=== PATIENT | male | born 1945 | race Caucasian/White ===

== ENCOUNTER 2020-07-17 13:26 | Inpatient (IN) ==
--- NOTE | 2020-07-17 13:56 | Emergency Department Note ---
Weakness HPI General Chief complaint: Weakness Stated complaint: Weakness, Confusion, SOB Time Seen by Provider: 07/17/20 13:37 Source: patient, family and RN notes reviewed Mode of arrival: ambulatory Limitations: no limitations History of Present Illness HPI Narrative: Narrative: This patient has had generalized weakness and confusion for the last couple of days and is also noted hallucination. He has been tested for Covid twice recently and they were negative. He has history of heart failure and COPD. He does use oxygen at home and a nebulizer machine. Has been coughing up chunks of bluish phlegm. Complaint: generalized weakness Onset (ago): day(s) Duration: constant Location: generalized Severity: similar to previous episodes Improves with: none Worsens with: none Associated symptoms: Reports confusion and shortness of breath Related Data Home Medications Medication Instructions Recorded Confirmed duloxetine 60 mg PO DAILY 04/19/20 07/17/20 oxycodone-acetaminophen [Percocet] 1 tab PO Q4H PRN 07/17/20 07/17/20 prazosin 1 mg PO QPM 07/17/20 07/17/20 Previous Rx's Medication Instructions Recorded tamsulosin 0.4 mg capsule 0.4 mg PO QDAY #30 cap 08/10/19 clopidogrel 75 mg tablet 75 mg PO QHS #30 tab 12/27/19 levothyroxine 200 mcg tablet 200 mcg PO QAM #30 tab 04/25/20 Oxygen #1 ea 05/05/20 metoprolol succinate 50 mg 50 mg PO QDAY #30 tab 05/08/20 tablet,extended release 24 hr gabapentin 300 mg capsule 300 mg PO Q8H #360 cap 06/19/20 furosemide 40 mg tablet See Rx Instructions .ROUTE BID 07/14/20 #120 tab potassium chloride 10 mEq 30 meq PO QDAY #120 cap 07/14/20 capsule,extended release Allergies Allergy/AdvReac Type Severity Reaction Status Date / Time ciprofloxacin AdvReac Severe dizzyness, Verified 07/17/20 13:31 confusion Sulfa (Sulfonamide AdvReac Intermediate Rash Verified 07/17/20 13:31 Antibiotics) Review of Systems ROS ROS Narrative: Narrative: All systems ED: reviewed and negative except as stated. [facility] Narrative Patient History Narrative: Narrative: Medical/Surgical/Family History All Active Problems (Updated 07/17/20 @ 16:31 by Dl Briggs MD) Pneumonia (Acute) Night terrors, adult (Acute) SOB (shortness of breath) (Acute) Hypokalemia (Acute) Alcoholic cirrhosis of liver (Acute) Periumbilical pain (Acute) Fatigue (Acute) Pleural effusion (Acute) UTI (urinary tract infection) (Acute) Avascular necrosis of bone of left hip (Acute) Abdominal pain (Acute) Medicare annual wellness visit, subsequent (Acute) Pressure ulcer (Chronic) Congestive heart failure (Chronic) Peripheral neuropathy (Chronic) BPH (benign prostatic hyperplasia) (Chronic) Peripheral arterial disease (Chronic) Hypertension, essential (Chronic) Hyperlipidemia (Chronic) Dependence on nocturnal oxygen therapy (Chronic) COPD (chronic obstructive pulmonary disease) (Chronic) Chronic anticoagulation (Chronic) Chronic narcotic use (Chronic) Obesity (BMI 30-39.9) (Chronic) Hypothyroidism, acquired (Chronic) Neuropathic foot ulcer (Chronic) Spinal stenosis (Chronic) Thrombocytopenia (Chronic) Chronic alcohol use (Chronic) Anemia, macrocytic (Chronic) Hyponatremia (Chronic) Hyperkalemia (Chronic) Medical History (Updated 07/17/20 @ 16:31 by Dl Briggs MD) Anemia, macrocytic (Chronic) BPH (benign prostatic hyperplasia) (Chronic) Chronic alcohol use (Chronic) Chronic anticoagulation (Chronic) Chronic narcotic use (Chronic) Congestive heart failure (Chronic) COPD (chronic obstructive pulmonary disease) (Chronic) Dependence on nocturnal oxygen therapy (Chronic) Hyperkalemia (Chronic) Hyperlipidemia (Chronic) Hypertension, essential (Chronic) Hyponatremia (Chronic) Hypothyroidism, acquired (Chronic) Neuropathic foot ulcer (Chronic) Obesity (BMI 30-39.9) (Chronic) Peripheral arterial disease (Chronic) Peripheral neuropathy (Chronic) Pressure ulcer (Chronic) Rt heel Spinal stenosis (Chronic) Thrombocytopenia (Chronic) Surgical History History of appendectomy (Chronic ~2007) History of atherectomy (Chronic ~10/29/19) Dr. Parth Wagner History of back surgery (Chronic ~2003) L-S W Fusion C-S W Fusion History of colonoscopy (Chronic) History of hip replacement, total (Chronic ~2011) Status post arterial stent (Chronic) bilateral lower extremities; Dr. Moore, [facility] Family History Sister Myocardial infarction Diabetes mellitus Brother Diabetes mellitus Brother Diabetes mellitus Father Leukemia Social History Smoking Status: Current some day smoker Alcohol Intake Frequency: 0-2 drinks per day Substance Use: does not use Exam Narrative Narrative: Narrative: General Limitations: no limitations Head Head: Present atraumatic, normocephalic and normal inspection Eye Eye: Present normal appearance and EOMI; Absent scleral icterus and conjunctival injection ENT ENT: Present normal exam and mucous membranes dry Neck Neck: Present normal inspection and full ROM Chest Chest: Present normal inspection and symmetric chest wall rise Respiratory Respiratory: Present decreased breath sounds Cardiovascular Cardiovascular: Present regular rate, normal rhythm and normal heart sounds Adbominal Abdominal: Present soft; Absent distention and tenderness Extremities Extremities: Present normal inspection and full ROM; Absent pedal edema and pretibial edema Neurological Neurological: Present alert Psychiatric Psychiatric: Present normal affect Skin Skin: Present warm (WNL) and dry; Absent diaphoresis Course Vital Signs Vital signs: Vital Signs Temperature 96.8 F L 07/17/20 13:28 Pulse Rate 83 07/17/20 13:28 Respiratory Rate 26 H 07/17/20 13:28 Blood Pressure 116/61 07/17/20 13:28 Pulse Oximetry (%) 97 07/17/20 13:28 Temperature 96.8 F L 07/17/20 13:28 Pulse Rate 53 L 07/17/20 13:34 Respiratory Rate 24 H 07/17/20 13:34 Blood Pressure 108/67 07/17/20 13:34 Pulse Oximetry (%) 98 07/17/20 13:34 [facility] MDM Narrative Medical decision making narrative: Narrative: Patient was cultured and treated with Rocephin and Zithromax and will be admitted to the hospital by Dr. Yeh. Lab Data Lab results reviewed: Yes I reviewed the patient's lab results. Lab results narrative: Lab work was not real remarkable Radiology Data Radiology results reviewed: Yes I reviewed the patient's radiology results. Radiology results narrative: X-ray shows bilateral pneumonia. Discharge Plan Patient/Caregiver Discharge Instructions Pt seen by [facility] P[facility]EMENTER/PA only: No Clinical Impression: Pneumonia Patient Disposition: Xfer As Inpt ([facility]) Follow up with: Christiano Flanagan MD [Primary Care Provider] - Prescriptions: No Action (DME) Oxygen Qty: 1 RF: 0 furosemide 40 mg tablet See Rx Instructions .ROUTE BID Qty: 120 RF: 1 potassium chloride 10 mEq capsule, extended release 30 meq PO QDAY Qty: 120 RF: 12 tamsulosin 0.4 mg capsule 0.4 mg PO QDAY Qty: 30 RF: 12 clopidogrel 75 mg tablet 75 mg PO QHS Qty: 30 RF: 11 levothyroxine [Levoxyl] 200 mcg tablet 200 mcg PO QAM Qty: 30 RF: 3 metoprolol succinate 50 mg tablet extended release 24 hr 50 mg PO QDAY Qty: 30 RF: 3 gabapentin 300 mg capsule 300 mg PO Q8H Qty: 360 RF: 0 duloxetine 60 mg capsule,delayed release(DR/EC) 60 mg PO DAILY RF: 0 prazosin 1 mg Capsule 1 mg PO QPM RF: 0 oxycodone-acetaminophen [Percocet] 10-325 mg Tablet 1 tab PO Q4H PRN (Reason: Back Pain) RF: 0
--- NOTE | 2020-07-17 14:27 | Cat Scan Report ---
History: Increased confusion and weakness TECHNIQUE: The brain was imaged without contrast at 2.5 mm intervals. The radiation exposure was limited using dose reduction technology. FINDINGS: Mild generalized cerebral atrophy is present. There is no evidence of an infarct, hemorrhage or mass effect. The ventricles and cisterns are normal allowing for atrophy. There is no abnormal extra-axial fluid collection. Bone windows show no skull lesion. There is opacification of a posterior ethmoid air on the left side. No abnormality is seen within the orbits. There are calcified plaques in the cavernous portions of both internal carotids. IMPRESSION: Normal age-related degenerative changes low-grade left-sided ethmoid sinusitis Dr. Briggs was called with results Interpreted and Authenticated by: Raymond Tang 07/17/20
[2020-07-17 14:29] LABS: Basophils # (Auto) 0.06 K/mcL (0.00-0.20); Basophils % (Auto) 0.8 % (0.0-2.0); Eosinophils # (Auto) 0.23 K/mcL (0.00-0.70); Eosinophils % (Auto) 3.2 % (0.0-7.0); Hematocrit 38.6 % (41.0-55.0); Hemoglobin 12.2 g/dL (13.5-16.5); Lymphocytes # (Auto) 1.62 K/mcL (1.50-4.80); Lymphocytes % (Auto) 22.5 % (15.0-49.0); Mean Corpuscular HGB Conc 31.6 g/dL (31.0-36.0); Mean Platelet Volume 11.8 fL (7.4-10.4); Monocytes % (Auto) 16.7 % (1.0-12.0); Neutrophils % (Auto) 56.8 % (38.0-78.0); Platelet Count 166 K/mcL (140-440); RBC 3.98 M/mcL (4.50-5.90); Red Cell Distribution Width 14.7 % (11.5-14.5); WBC 7.2 K/mcL (4.5-11.0)
--- NOTE | 2020-07-17 14:30 | XRay Report ---
HISTORY: Short of breath FINDINGS: Large consolidating alveolar infiltrates are present in the lower half of both lungs. There is mild involvement in the left upper lobe. There is sparing of the right upper lobe. Superimposed upon this are small to moderate-sized bilateral pleural effusions. Infiltrates have become worse. The pleural effusions have remained relatively stable since 05/30/20. The heart is not enlarged. Extensive postsurgical changes are present following extensive spinal fusion. IMPRESSION: Worsening pneumonia in both lungs with stable superimposed pleural effusions Interpreted and Authenticated by: Raymond Tang 07/17/20
[2020-07-17 15:01] LABS: ALT/SGPT < 5 U/L (<40); AST/SGOT 14 U/L (<40); Albumin 3.9 gm/dL (3.2-5.2); Albumin/Globulin Ratio 1.2 (1.0-2.3); Alkaline Phosphatase 233 U/L (39-117); Bilirubin,Total 0.7 mg/dL (0.1-1.0); Blood Urea Nitrogen 13 mg/dL (8-23); Calcium 9.4 mg/dL (8.6-10.4); Carbon Dioxide 36 mmol/L (22-30); Chloride 94 mmol/L (96-108); Globulin 3.2 gm/dL (2.2-3.7); Glomerular Filtration Rate 59; Glucose 82 mg/dL (70-105)
[2020-07-17] MEDS ORDERED: cefTRIAXone 1 GM VIAL IV ONE (15:45)
[2020-07-17] MEDS ORDERED: AZITHROMYCIN 500 MG in DEXTROSE 5% IN WATER 250 ML IV ONE (15:45)
[2020-07-17 16:00] LABS: Appearance,Urine CLEAR (Clear); Bilirubin,Urine Negative (Negative); Color,Urine YELLOW; Culture Indicated,Urine No; Glucose,Urine (UA) Negative (Negative); Ketones,Urine Negative (Negative); Leukocyte Esterase,Urine Negative /ug (Negative); Mucus,Urine FEW /hpf; Nitrate,Urine Negative (Negative); Protein,Urine Negative (Negative); Specific Gravity,Urine 1.013 (1.000-1.035); Urine Blood Negative (Negative); Urine Hyaline Cast 19 /lph (0-2); Urine RBC 1 /hpf (0-1); Urine Squamous Epithelial Cell 2 /hpf (0-4); Urine Transitional Epi Cells < 1 /hpf (0-2); Urine WBC 2 /hpf (0-4)
[2020-07-17] MEDS ORDERED: ACETAMINOPHEN 650 MG/65 ML BOTTLE IV PRN ×2 (16:33→18:29)
[2020-07-17] MEDS ORDERED: POLYETHYLENE GLYCOL 3350 17 GM PACKET PO PRN ×2 (16:33→18:29)
[2020-07-17] MEDS ORDERED: ACETAMINOPHEN 325 MG TABLET PO PRN ×2 (16:33→18:29)
[2020-07-17] MEDS ORDERED: MAGNESIUM SULFATE 2 GM/50 ML BAG IV PRN ×2 (16:33→18:29)
[2020-07-17] MEDS ORDERED: ONDANSETRON 4 MG/2 ML VIAL IV PRN ×2 (16:33→18:29)
[2020-07-17] MEDS ORDERED: POTASSIUM CHLORIDE 40 MEQ in DEXTROSE 5% IN WATER 500 ML IV PRN ×2 (16:33→18:29)
[2020-07-17] MEDS ORDERED: ONDANSETRON 4 MG ODT TABLET SL PRN ×2 (16:33→18:29)
[2020-07-17] MEDS ORDERED: MELATONIN 3 MG TABLET PO PRN ×2 (16:33→18:29)
[2020-07-17] MEDS ORDERED: BISACODYL 10 MG SUPP.RECT PR PRN ×2 (16:33→18:29)
[2020-07-17] MEDS ORDERED: REMDESIVIR 200 MG in 0.9 % SODIUM CHLORIDE 250 ML IV ONE ×3 (16:38→18:29)
--- NOTE | 2020-07-17 16:39 | Internal Med History&Physical ---
HPI History of Present Illness Patient information: Note initiated : 07/17/20 at 4:39 pm Service Date, if different from initiated Date: [] Patient: Luis Alberto Quinn a 75 y/o M admitted on for Weakness, Confusion, SOB. Chief Complaint: Worsening shortness of breath and productive cough History of present illness: Mr. Quinn is a 75 year old M with a history of COPD/prior history of smoking, DJD, CHF/CAD/neuropathy who presents to the ER with worsening shortness of breath along with cough and inability to function. Symptoms has progressed over the last couple of days limiting his ability to perform ADLs. Patient has had intermittent flares of COPD and has been experiencing hacking cough with intermittent yellow productive sputum over the last month. He denies recent sick contacts but endorses to coughing spell with associated epigastric pain, rapid deterioration over the last 48 hours but denies associated fever, headache, chest pain, diarrhea or rash or joint pain or myalgias. Initial work-up in the ER was consistent with bilateral pneumonia/associated pleural effusion. Covid test pending. Patient was started on antibiotic coverage and subsequently hospitalist service was consulted. Patient is requiring 2 L oxygen to maintain sats. At the time of my evaluation patient is alert and oriented. He was able to answer most the questions. He is lives with his daughter Clari. Intimately smokes and drink but denies exposure to sick contacts. Endorses to history as above. Review of systems 10 point review system was performed and is negative except for ones discussed above PFSH PFSH All Active Problems (Updated 07/17/20 @ 16:31 by Dl Briggs MD) Pneumonia (Acute) Night terrors, adult (Acute) SOB (shortness of breath) (Acute) Hypokalemia (Acute) Alcoholic cirrhosis of liver (Acute) Periumbilical pain (Acute) Fatigue (Acute) Pleural effusion (Acute) UTI (urinary tract infection) (Acute) Avascular necrosis of bone of left hip (Acute) Abdominal pain (Acute) Medicare annual wellness visit, subsequent (Acute) Pressure ulcer (Chronic) Congestive heart failure (Chronic) Peripheral neuropathy (Chronic) BPH (benign prostatic hyperplasia) (Chronic) Peripheral arterial disease (Chronic) Hypertension, essential (Chronic) Hyperlipidemia (Chronic) Dependence on nocturnal oxygen therapy (Chronic) COPD (chronic obstructive pulmonary disease) (Chronic) Chronic anticoagulation (Chronic) Chronic narcotic use (Chronic) Obesity (BMI 30-39.9) (Chronic) Hypothyroidism, acquired (Chronic) Neuropathic foot ulcer (Chronic) Spinal stenosis (Chronic) Thrombocytopenia (Chronic) Chronic alcohol use (Chronic) Anemia, macrocytic (Chronic) Hyponatremia (Chronic) Hyperkalemia (Chronic) Medical History (Updated 07/17/20 @ 16:31 by Dl Briggs MD) Anemia, macrocytic (Chronic) BPH (benign prostatic hyperplasia) (Chronic) Chronic alcohol use (Chronic) Chronic anticoagulation (Chronic) Chronic narcotic use (Chronic) Congestive heart failure (Chronic) COPD (chronic obstructive pulmonary disease) (Chronic) Dependence on nocturnal oxygen therapy (Chronic) Hyperkalemia (Chronic) Hyperlipidemia (Chronic) Hypertension, essential (Chronic) Hyponatremia (Chronic) Hypothyroidism, acquired (Chronic) Neuropathic foot ulcer (Chronic) Obesity (BMI 30-39.9) (Chronic) Peripheral arterial disease (Chronic) Peripheral neuropathy (Chronic) Pressure ulcer (Chronic) Rt heel Spinal stenosis (Chronic) Thrombocytopenia (Chronic) Surgical History History of appendectomy (Chronic ~2007) History of atherectomy (Chronic ~10/29/19) Dr. Parth Wagner History of back surgery (Chronic ~2003) L-S W Fusion C-S W Fusion History of colonoscopy (Chronic) History of hip replacement, total (Chronic ~2011) Status post arterial stent (Chronic) bilateral lower extremities; Dr. Moore, [facility] Family History Sister Myocardial infarction Diabetes mellitus Brother Diabetes mellitus Brother Diabetes mellitus Father Leukemia Social History marital status: single occupational status: retired and disabled occupation: Former [employer] other: Children-2 smoking status: Current some day smoker alcohol intake frequency: 0-2 drinks per day substance use type: does not use MEDS/ALLERGIES Home Medications and Allergies Home Medications Medication Instructions Recorded Confirmed Type tamsulosin 0.4 mg capsule 0.4 mg PO QDAY #30 cap 08/10/19 07/17/20 Rx clopidogrel 75 mg tablet 75 mg PO QHS #30 tab 12/27/19 07/17/20 Rx duloxetine 60 mg PO DAILY 04/19/20 07/17/20 History levothyroxine 200 mcg tablet 200 mcg PO QAM #30 tab 04/25/20 07/17/20 Rx Oxygen #1 ea 05/05/20 07/17/20 Rx metoprolol succinate 50 mg 50 mg PO QDAY #30 tab 05/08/20 07/17/20 Rx tablet,extended release 24 hr gabapentin 300 mg capsule 300 mg PO Q8H #360 cap 06/19/20 07/17/20 Rx furosemide 40 mg tablet See Rx Instructions .ROUTE BID 07/14/20 07/17/20 Rx #120 tab potassium chloride 10 mEq 30 meq PO QDAY #120 cap 07/14/20 07/17/20 Rx capsule,extended release oxycodone-acetaminophen [Percocet] 1 tab PO Q4H PRN 07/17/20 07/17/20 History prazosin 1 mg PO QPM 07/17/20 07/17/20 History Allergies Allergy/AdvReac Type Severity Reaction Status Date / Time ciprofloxacin AdvReac Intermediate dizzyness, Verified 07/18/20 07:13 confusion Sulfa (Sulfonamide AdvReac Mild Rash Verified 07/18/20 07:13 Antibiotics) EXAM Constitutional Vitals: Temp Pulse Resp BP Pulse Ox 96.8 F L 77 23 H 130/77 99 07/17/20 13:28 07/17/20 16:01 07/17/20 16:01 07/17/20 16:01 07/17/20 16:01 Anxious but alert and oriented Head normocephalic Oral cavity moist No ear or nose discharge Eye movement symmetrical Neck supple no lymphadenopathy S1-S2 no telemetry events. Regular Labored breathing on 2 L oxygen. Expiratory rhonchi Nondistended nontender abdomen Lower extremity no cyanosis clubbing or joint swelling, right ball of great toe 1 x 1 cm area of scab without surrounding erythema Skin no suspicious lesion Psych anxious but no hallucination Neuro normal higher function DATA Data Completed and Pending Labs: Labs from last 24 hours 07/17/20 07/17/20 07/17/20 16:01 14:39 13:53 WBC RBC Hgb Hct MCV MCH MCHC RDW Plt Count MPV Neut % (Auto) Lymph % (Auto) [place] % (Auto) Eos % (Auto) Baso % (Auto) Lymph # (Auto) [place] # (Auto) Eos # (Auto) Baso # (Auto) Absolute Neutrophils VBG Lactic Acid Sodium Potassium Chloride Carbon Dioxide Anion Gap BUN Creatinine GFR Calculation Glucose Calcium Total Bilirubin AST ALT Alkaline Phosphatase Troponin T 0.02 NT-Pro-B Natriuret Pep Total Protein Albumin Globulin Albumin/Globulin Ratio Urine Color Yellow Urine Appearance Clear Urine pH 6.0 Ur Specific [place] 1.013 Urine Protein Negative Urine Glucose (UA) Negative Urine Ketones Negative Urine Occult Blood Negative Urine Nitrate Negative Urine Bilirubin Negative Urine Urobilinogen 2.0 A Ur Leukocyte Esterase Negative Urine RBC 1 Urine WBC 2 Ur Squamous Epith Cells 2 Ur Transition Epith Cell < 1 Urine Bacteria None Hyaline Casts 19 H Urine Mucus Few A Ur Culture Indicated? No SARS-CoV-2 (PCR) Pending 07/17/20 07/17/20 07/17/20 13:53 13:53 13:53 WBC 7.2 RBC 3.98 L Hgb 12.2 L Hct 38.6 L MCV 97.0 MCH 30.7 MCHC 31.6 RDW 14.7 H Plt Count 166 MPV 11.8 H Neut % (Auto) 56.8 Lymph % (Auto) 22.5 [place] % (Auto) 16.7 H Eos % (Auto) 3.2 Baso % (Auto) 0.8 Lymph # (Auto) 1.62 [place] # (Auto) 1.20 H Eos # (Auto) 0.23 Baso # (Auto) 0.06 Absolute Neutrophils 4.09 VBG Lactic Acid 1.8 Sodium 140 Potassium 4.0 Chloride 94 L Carbon Dioxide 36 H Anion Gap 10.0 BUN 13 Creatinine 1.2 GFR Calculation 59 Glucose 82 Calcium 9.4 Total Bilirubin 0.7 AST 14 ALT < 5 Alkaline Phosphatase 233 H Troponin T NT-Pro-B Natriuret Pep 1239.0 H Total Protein 7.1 Albumin 3.9 Globulin 3.2 Albumin/Globulin Ratio 1.2 Urine Color Urine Appearance Urine pH Ur Specific [place] Urine Protein Urine Glucose (UA) Urine Ketones Urine Occult Blood Urine Nitrate Urine Bilirubin Urine Urobilinogen Ur Leukocyte Esterase Urine RBC Urine WBC Ur Squamous Epith Cells Ur Transition Epith Cell Urine Bacteria Hyaline Casts Urine Mucus Ur Culture Indicated? SARS-CoV-2 (PCR) A/P Narrative A/P Narrative: * Bilateral lower lobe pneumonia-empiric antibiotic coverage. Await Covid 19 t esting. Start dexamethasone/remdesivir. * Hypoxic respiratory failure -continue supplemental oxygen. Likely secondary to pneumonia. * History of COPD with acute exacerbation continue steroids/bronchod ilators/oxygen/pulmonary toilet * Bilateral pleural effusion-gentle diuresis. If worsening thoracentesis * History of CAD/CHF continue Plavix/metoprolol. * BPH continue tamsulosin * Hypothyroid continue thyroxine * Anxiety disorder continue Cymbalta * Hypertension continue prazosin/metoprolol * Neuropathy continue gabapentin * Full code * Prophylaxis heparin Plan * Inpatient admission * Remdesivir/dexamethasone/empiric antibiotics * Inflammatory markers * Interval chest imaging * If worsening pleural effusion or white count- thoracentesis * Pre-existing medical condition management on home medication Time Spent With Patient Time: Total time spent is greater than 50% in coordination of care (as documented) at patient's floor/unit and/or counseling patient:
[2020-07-17] MEDS ORDERED: cefTRIAXone 2 GM in DEXTROSE 5% IN WATER 50 ML IV SCH ×2 (16:45→17:00)
[2020-07-17] MEDS ORDERED: oxyCODONE/APAP 10/325MG TABLET PO PRN (18:29)
[2020-07-17] MEDS ORDERED: OXYGEN NARES SCH (18:30)
[2020-07-17] MEDS ORDERED: HEPARIN 5,000 UNIT/ML VIAL SQ SCH (21:00)
[2020-07-17] MEDS ORDERED: CLOPIDOGREL 75 MG TABLET PO SCH (21:00)
[2020-07-17] MEDS ORDERED: PRAZOSIN 1 MG CAPSULE PO SCH (21:00)
[2020-07-17] MEDS ORDERED: SENNOSIDES/DOCUSATE SODIUM 1 TAB TABLET PO SCH ×2 (21:00)
[2020-07-17] MEDS ORDERED: DOCUSATE SODIUM 100 MG CAPSULE PO SCH (21:00)
[2020-07-17] MEDS ORDERED: BUDESONIDE 1 PUFF INHALER INH SCH (21:00)
[2020-07-17] MEDS: DOCUSATE SODIUM 100 MG CAPSULE PO SCH (21:48)
[2020-07-17] MEDS: HEPARIN 5,000 UNIT/ML VIAL SQ SCH (21:48)
[2020-07-17] MEDS: GABAPENTIN 300 MG CAPSULE PO SCH (21:48)
[2020-07-17] MEDS: BUDESONIDE 1 PUFF INHALER INH SCH (21:50)
[2020-07-17] MEDS: 0.9 % SODIUM CHLORIDE 10 ML SYRINGE IV SCH (21:50)
[2020-07-17] MEDS ORDERED: 0.9 % SODIUM CHLORIDE 10 ML SYRINGE IV SCH (22:00)
[2020-07-18] MEDS: GABAPENTIN 300 MG CAPSULE PO SCH ×3 (05:21→20:30)
[2020-07-18] MEDS: 0.9 % SODIUM CHLORIDE 10 ML SYRINGE IV SCH ×3 (05:22→20:32)
[2020-07-18 07:07] LABS: Basophils # (Auto) 0.05 K/mcL (0.00-0.20); Basophils % (Auto) 0.8 % (0.0-2.0); Eosinophils # (Auto) 0.19 K/mcL (0.00-0.70); Eosinophils % (Auto) 2.9 % (0.0-7.0); Hematocrit 37.1 % (41.0-55.0); Hemoglobin 11.6 g/dL (13.5-16.5); Lymphocytes # (Auto) 2.06 K/mcL (1.50-4.80); Lymphocytes % (Auto) 30.9 % (15.0-49.0); Mean Cell Volume 97.6 fL (80.0-100.0); Mean Corpuscular HGB Conc 31.3 g/dL (31.0-36.0); Mean Platelet Volume 11.7 fL (7.4-10.4); Monocytes # (Auto) 1.03 K/mcL (0.10-0.90); Monocytes % (Auto) 15.5 % (1.0-12.0); Neutrophils % (Auto) 49.9 % (38.0-78.0); Platelet Count 150 K/mcL (140-440); Red Cell Distribution Width 14.8 % (11.5-14.5); WBC 6.7 K/mcL (4.5-11.0)
[2020-07-18] MEDS ORDERED: LEVOTHYROXINE 100 MCG TABLET PO SCH (07:30)
[2020-07-18 08:00] LABS: ALT/SGPT 6 U/L (<40); AST/SGOT 18 U/L (<40); Albumin 3.8 gm/dL (3.2-5.2); Albumin/Globulin Ratio 1.2 (1.0-2.3); Alkaline Phosphatase 223 U/L (39-117); Bilirubin,Direct 0.3 mg/dL (<0.3); Bilirubin,Total 0.7 mg/dL (0.1-1.0); Blood Urea Nitrogen 11 mg/dL (8-23); Calcium 9.3 mg/dL (8.6-10.4); Carbon Dioxide 34 mmol/L (22-30); Chloride 93 mmol/L (96-108); Globulin 3.2 gm/dL (2.2-3.7); Glomerular Filtration Rate 73; Glucose 103 mg/dL (70-105); Lactate Dehydrogenase 170 U/L (135-225); Triglycerides 56 mg/dL (<150)
[2020-07-18] MEDS ORDERED: FUROSEMIDE 80 MG TABLET PO SCH ×2 (08:00→12:00)
[2020-07-18] MEDS ORDERED: POTASSIUM CHLORIDE 10 MEQ TABLET PO SCH (08:00)
[2020-07-18 08:14] LABS: Ferritin 288.9 ng/mL (30.0-400.0)
[2020-07-18] MEDS: HEPARIN 5,000 UNIT/ML VIAL SQ SCH ×2 (08:47→20:33)
[2020-07-18] MEDS: DOCUSATE SODIUM 100 MG CAPSULE PO SCH ×2 (08:48→20:31)
[2020-07-18] MEDS: BUDESONIDE 1 PUFF INHALER INH SCH ×2 (08:48→20:33)
[2020-07-18] MEDS ORDERED: METOPROLOL SUCCINATE 50 MG TAB.XL.24H PO SCH (09:00)
[2020-07-18] MEDS ORDERED: DEXAMETHASONE 4 MG TABLET PO SCH ×2 (09:00)
[2020-07-18] MEDS ORDERED: TAMSULOSIN 0.4 MG CAPSULE PO SCH (09:00)
[2020-07-18] MEDS ORDERED: DULoxetine 30 MG CAPSULE PO SCH (09:00)
[2020-07-18] MEDS ORDERED: cefTRIAXone 2 GM in DEXTROSE 5% IN WATER 50 ML IV SCH (09:00)
[2020-07-18] MEDS ORDERED: REMDESIVIR 100 MG in 0.9 % SODIUM CHLORIDE 250 ML IV SCH (09:00)
[2020-07-18] MEDS ORDERED: TIOTROPIUM BROMIDE 18 MCG INHALANT INH SCH ×2 (09:00)
[2020-07-18] MEDS ORDERED: AZITHROMYCIN 500 MG in DEXTROSE 5% IN WATER 250 ML IV SCH (11:00)
[2020-07-18] MEDS ORDERED: ONDANSETRON 4 MG ODT TABLET SL PRN (11:58)
[2020-07-18] MEDS ORDERED: ACETAMINOPHEN 650 MG/65 ML BOTTLE IV PRN (11:58)
[2020-07-18] MEDS ORDERED: BISACODYL 10 MG SUPP.RECT PR PRN (11:58)
[2020-07-18] MEDS ORDERED: oxyCODONE/APAP 10/325MG TABLET PO PRN (11:58)
[2020-07-18] MEDS ORDERED: ACETAMINOPHEN 325 MG TABLET PO PRN (11:58)
[2020-07-18] MEDS ORDERED: ONDANSETRON 4 MG/2 ML VIAL IV PRN (11:58)
[2020-07-18] MEDS ORDERED: POTASSIUM CHLORIDE 40 MEQ in DEXTROSE 5% IN WATER 500 ML IV PRN (11:58)
[2020-07-18] MEDS ORDERED: MELATONIN 3 MG TABLET PO PRN (11:58)
[2020-07-18] MEDS ORDERED: MAGNESIUM SULFATE 2 GM/50 ML BAG IV PRN (11:58)
[2020-07-18] MEDS ORDERED: POLYETHYLENE GLYCOL 3350 17 GM PACKET PO PRN (11:58)
--- NOTE | 2020-07-18 14:04 | Internal Med Progress Note ---
SUBJECTIVE Subjective Patient information: Note initiated : 07/18/20 at 2:01 pm Service Date, if different from initiated Date: [] Patient: Luis Alberto Qiunn a 75 y/o M admitted on 07/17/20 for Weakness, Confusion, SOB. Chief Complaint: [] Interval history: Mr. Quinn is a 75 year old M with a history of COPD/prior history of smoking, DJD, CHF/CAD/neuropathy who presents to the ER with worsening shortness of breath along with cough and inability to function that has progressed over the last couple of days. Patient has had intermittent flares of COPD and has been experiencing hacking cough with intermittent yellow productive sputum over the last month. He denies recent sick contacts but endorses to rapid deterioration over the last 48 hours but denies associated fever, headache, chest pain, diarrhea or rash or joint pain or myalgias. Initial work-up in the ER was consistent with bilateral pneumonia/associated pleural effusion. Covid test pending. Patient was started on antibiotic coverage and subsequently hospitalist service was consulted. Patient is requiring 2 L oxygen to maintain sats. At the time of my evaluation patient is alert and oriented. He was able to answer most the questions. He is lives with his daughter Clari. Intimately smokes and drink but denies exposure to sick contacts. Endorses to history as above. 07/18-patient doing remarkably better. On 2 L oxygen. Continue antibiotic/steroid. Covid negative. Remdesivir/dexamethasone discontinued. White count 6.7. Repeat chest imaging 24 hours. CRP 4.6, transition to medical floor. Continue bronchodilators Constitutional Vitals: Vital Signs Temp Pulse Resp BP Pulse Ox 97.4 F 83 22 119/79 95 07/18/20 08:00 07/18/20 12:01 07/18/20 10:02 07/18/20 12:01 07/18/20 12:01 Period Temp Pulse Resp BP Sys/Garcia Pulse Ox Last 24 Hr 97.4 F-98.5 F 71-95 16-31 84-139/55-81 90-100 Intake and Output 07/18/20 07/18/20 07/18/20 05:59 13:59 21:59 Intake Total 120 300 Output Total 450 275 Balance -330 25 Alert oriented No anxiety On 2 L oxygen Nonlabored breathing Intake & Output: Intake & Output 07/18/20 07/18/20 07/18/20 05:59 13:59 21:59 Intake Total 120 300 Output Total 450 275 Balance -330 25 Intake: IV 300 Zithromax 500 mg In Dextrose 5% 250 in Water 250 ml @ 250 mls/hr IV Q24H REPLACED BY [facility] Rx#:[id number] Rocephin 2 gm In Dextrose 5% in 50 Water 50 ml @ 100 mls/hr IV Q24H REPLACED BY [facility] Rx#:[id number] Oral 120 Output: Urine Catheter Amount 450 Void Amount 275 Other: Meal Lunch Percent of Meal Consumed 100% Feeding Ability Independent Urine Appearance Clear Clear Urine Color Dark Clari Dark Yellow Urine Odor Strong Strong Stool Size Large Stool Color Brown Green Stool Consistency Formed # Bowel Movements 1 OBJ DATA Labs CBC & Chem 7: 07/18/20 05:08 07/18/20 05:08 Labs: Abnormal Lab Results 07/18/20 07/18/20 07/18/20 05:08 05:08 05:08 RBC 3.80 L Hgb 11.6 L Hct 37.1 L RDW 14.8 H MPV 11.7 H [place] % (Auto) 15.5 H [place] # (Auto) 1.03 H D-Dimer 4.80 H Chloride 93 L Carbon Dioxide 34 H Uric Acid 9.0 H Direct Bilirubin 0.3 H GGT 149 H Alkaline Phosphatase 223 H C-Reactive Protein 4.60 H NT-Pro-B Natriuret Pep Urine Urobilinogen Hyaline Casts Urine Mucus 07/17/20 07/17/20 07/17/20 14:39 13:53 13:53 RBC 3.98 L Hgb 12.2 L Hct 38.6 L RDW 14.7 H MPV 11.8 H [place] % (Auto) 16.7 H [place] # (Auto) 1.20 H D-Dimer Chloride 94 L Carbon Dioxide 36 H Uric Acid Direct Bilirubin GGT Alkaline Phosphatase 233 H C-Reactive Protein NT-Pro-B Natriuret Pep 1239.0 H Urine Urobilinogen 2.0 A Hyaline Casts 19 H Urine Mucus Few A Meds: Medications Acetaminophen (Tylenol) 650 mg PO Q4-6HP PRN; Protocol PRN Reason: Per Pain Protocol/Fever > 101 Bisacodyl (Dulcolax) 10 mg IN Q2-3DAYS PRN PRN Reason: Constipation Budesonide (Pulmicort) 2 puff INH BID REPLACED BY [facility] Clopidogrel Bisulfate (Plavix) 75 mg PO QHS REPLACED BY [facility] Dexamethasone (Decadron) 6 mg PO DAILY REPLACED BY [facility] Docusate Sodium (Colace) 100 mg PO BID REPLACED BY [facility] Duloxetine HCl (Cymbalta) 60 mg PO DAILY REPLACED BY [facility] Furosemide (Lasix) 80 mg PO BID@0800,1200 REPLACED BY [facility] Gabapentin (Neurontin) 300 mg PO Q8 REPLACED BY [facility] Heparin Sodium (Porcine) (Heparin) 5,000 unit SQ Q12 REPLACED BY [facility] Azithromycin 500 mg/ Dextrose 250 mls @ 250 mls/hr IV Q24H [facility] Stop: 07/20/20 10:59 Ceftriaxone Sodium 2 gm/ (Dextrose) 50 mls @ 100 mls/hr IV Q24H [facility]; Protocol Potassium Chloride 40 meq/ (Dextrose) 520 mls @ 130 mls/hr IV UD PRN PRN Reason: K+ = or < 3.5 Acetaminophen (Ofirmev) 650 mg in 65 mls @ 130 mls/hr IV Q6HP PRN; Protocol PRN Reason: Per Pain Protocol/Fever > 101 Magnesium Sulfate (Magnesium Sulfate) 2 gm in 50 mls @ 50 mls/hr IV UD PRN PRN Reason: MG = or < 1.7 Levothyroxine Sodium (Synthroid) 200 mcg PO ACB REPLACED BY [facility] Melatonin (Melatonin 3mg Tablet) 3 mg PO HSP PRN PRN Reason: Insomnia Metoprolol Succinate (Toprol Xl) 50 mg PO QDAY REPLACED BY [facility] Ondansetron HCl (Zofran Odt) 4 mg SL Q4-6HP PRN; Protocol PRN Reason: Nausea And Vomiting Ondansetron HCl (Zofran) 4 mg IV Q4-6HP PRN; Protocol PRN Reason: Nausea And Vomiting Oxycodone/Acetaminophen (Percocet 10-325mg) 1 tab PO Q4HP PRN; Protocol PRN Reason: Back Pain Polyethylene Glycol (Miralax) 17 gm PO DAILYP PRN PRN Reason: Constipation Potassium Chloride (Kdur) 30 meq PO QAMCC REPLACED BY [facility] Prazosin HCl (Minipress) 1 mg PO QPM REPLACED BY [facility] Senna/Docusate Sodium (Senna Plus Tablet) 1 tab PO HS REPLACED BY [facility] Sodium Chloride (Saline Flush) 10 ml IV Q8 REPLACED BY [facility] Tamsulosin HCl (Flomax) 0.4 mg PO QDAY REPLACED BY [facility] Tiotropium [place] (Spiriva) 18 mcg INH DAILY [facility] A/P Narrative A/P Narrative: * Bilateral lower lobe pneumonia-empiric community-acquired pneumonia treatment protocol. Clinically improving * Hypoxic respiratory failure -on 2 L oxygen. Clinically improving. Improved dyspnea. * History of COPD with acute exacerbation clinically improved on steroids/bronchodilators/oxygen/pulmonary toilet * Bilateral pleural effusion-continue diuresis. No evidence of worsening white count. Interval chest imaging 24 hours * History of CAD/CHF continue Plavix/metoprolol. * BPH continue tamsulosin * Hypothyroid continue thyroxine * Anxiety disorder continue Cymbalta * Hypertension continue prazosin/metoprolol * Neuropathy continue gabapentin * Full code * Prophylaxis heparin Plan * Continue antibiotic coverage * Interval chest imaging * Pulmonary toilet * Thoracentesis if worsening pleural effusion on imaging * Pre-existing medical condition management on home medication Time Spent With Patient Time: Total time spent is greater than 50% in coordination of care (as documented) at patient's floor/unit and/or counseling patient: QUALITY VTE Deep Vein Thrombosis/Pulmonary Embolism Present on Admission: No
[2020-07-18] MEDS: FUROSEMIDE 80 MG TABLET PO SCH (14:50)
[2020-07-18] MEDS: PRAZOSIN 1 MG CAPSULE PO SCH (20:30)
[2020-07-18] MEDS: SENNOSIDES/DOCUSATE SODIUM 1 TAB TABLET PO SCH (20:31)
[2020-07-18] MEDS: CLOPIDOGREL 75 MG TABLET PO SCH (20:31)
[2020-07-19] MEDS: GABAPENTIN 300 MG CAPSULE PO SCH ×3 (05:15→21:00)
[2020-07-19] MEDS: 0.9 % SODIUM CHLORIDE 10 ML SYRINGE IV SCH ×4 (05:15→20:20)
[2020-07-19 06:31] LABS: Basophils # (Auto) 0.01 K/mcL (0.00-0.20); Basophils % (Auto) 0.1 % (0.0-2.0); Eosinophils # (Auto) 0.01 K/mcL (0.00-0.70); Eosinophils % (Auto) 0.1 % (0.0-7.0); Hemoglobin 10.9 g/dL (13.5-16.5); Lymphocytes # (Auto) 1.22 K/mcL (1.50-4.80); Lymphocytes % (Auto) 13.7 % (15.0-49.0); Mean Cell Volume 95.5 fL (80.0-100.0); Mean Corpuscular HGB Conc 32.1 g/dL (31.0-36.0); Mean Platelet Volume 11.7 fL (7.4-10.4); Monocytes # (Auto) 0.86 K/mcL (0.10-0.90); Monocytes % (Auto) 9.7 % (1.0-12.0); Neutrophils % (Auto) 76.4 % (38.0-78.0); Platelet Count 153 K/mcL (140-440); RBC 3.56 M/mcL (4.50-5.90); Red Cell Distribution Width 14.5 % (11.5-14.5); WBC 8.9 K/mcL (4.5-11.0)
[2020-07-19] MEDS: LEVOTHYROXINE 100 MCG TABLET PO SCH (07:00)
[2020-07-19 07:27] LABS: ALT/SGPT < 5 U/L (<40); AST/SGOT 15 U/L (<40); Albumin 3.4 gm/dL (3.2-5.2); Alkaline Phosphatase 223 U/L (39-117); Bilirubin,Direct 0.2 mg/dL (<0.3); Bilirubin,Total 0.5 mg/dL (0.1-1.0); Blood Urea Nitrogen 19 mg/dL (8-23); Calcium 9.2 mg/dL (8.6-10.4); Carbon Dioxide 31 mmol/L (22-30); Chloride 92 mmol/L (96-108); Globulin 3.4 gm/dL (2.2-3.7); Glomerular Filtration Rate 65; Glucose 122 mg/dL (70-105); Lactate Dehydrogenase 137 U/L (135-225); Phosphorous 3.7 mg/dL (2.5-4.5); Triglycerides 42 mg/dL (<150); Uric Acid 8.7 mg/dL (2.5-8.0)
[2020-07-19] MEDS: POTASSIUM CHLORIDE 10 MEQ TABLET PO SCH (08:01)
[2020-07-19] MEDS: FUROSEMIDE 80 MG TABLET PO SCH ×2 (08:01→11:42)
[2020-07-19] MEDS: DULoxetine 30 MG CAPSULE PO SCH (08:49)
[2020-07-19] MEDS: DOCUSATE SODIUM 100 MG CAPSULE PO SCH ×2 (08:50→20:18)
[2020-07-19] MEDS: TAMSULOSIN 0.4 MG CAPSULE PO SCH (08:51)
[2020-07-19] MEDS: HEPARIN 5,000 UNIT/ML VIAL SQ SCH ×2 (08:51→20:18)
[2020-07-19] MEDS: METOPROLOL SUCCINATE 50 MG TAB.XL.24H PO SCH (08:51)
[2020-07-19] MEDS ORDERED: DEXAMETHASONE 4 MG TABLET PO SCH (09:00)
[2020-07-19] MEDS: BUDESONIDE 1 PUFF INHALER INH SCH ×2 (09:04→20:19)
[2020-07-19] MEDS: TIOTROPIUM BROMIDE 18 MCG INHALANT INH SCH (09:06)
--- NOTE | 2020-07-19 09:08 | XRay Report ---
HISTORY: Follow-up pneumonia with shortness of breath weakness and confusion FINDINGS: There are large densely consolidating alveolar infiltrates in both lungs predominantly involving the lower halves. There is also involvement in the left upper lobe and relative sparing of the right upper lobe. Superimposed upon this there are moderate size bilateral pleural effusions. Heart size remains normal. Comparison with prior exam from 07/17/20 shows little change. IMPRESSION: Stable bilateral pneumonia/atelectasis and bilateral pleural effusions Interpreted and Authenticated by: Raymond Tang 07/19/20
[2020-07-19] MEDS: cefTRIAXone 2 GM in DEXTROSE 5% IN WATER 50 ML IV SCH (09:19)
--- NOTE | 2020-07-19 10:07 | Internal Med Progress Note ---
SUBJECTIVE Subjective Patient information: Note initiated : 07/19/20 at 10:04 am Service Date, if different from initiated Date: [] Patient: Luis Alberto Quinn 75 y/o M admitted on 07/17/20 for Weakness, Confusion, SOB. Chief Complaint: Interval history: Mr. Quinn is a 75 year old M with a history of COPD/prior history of smoking, DJD, CHF/CAD/neuropathy who presents to the ER with worsening shortness of breath along with cough and inability to function that has progressed over the last couple of days. Patient has had intermittent flares of COPD and has been experiencing hacking cough with intermittent yellow productive sputum over the last month. He denies recent sick contacts but endorses to rapid deterioration over the last 48 hours but denies associated fever, headache, chest pain, diarrhea or rash or joint pain or myalgias. Initial work-up in the ER was consistent with bilateral pneumonia/associated pleural effusion. Covid test pending. Patient was started on antibiotic coverage and subsequently hospitalist service was consulted. Patient is requiring 2 L oxygen to maintain sats. At the time of my evaluation patient is alert and oriented. He was able to answer most the questions. He is lives with his daughter Clari. Intimately smokes and drink but denies exposure to sick contacts. Endorses to history as above. 07/18-patient doing remarkably better. On 2 L oxygen. Continue antibiotic/steroid. Covid negative. Remdesivir/dexamethasone discontinued. White count 6.7. Repeat chest imaging 24 hours. CRP 4.6, transition to medical floor. Continue bronchodilators 07/19-patient currently on 3 L oxygen. Interval chest imaging persistent pneumonia/effusions however patient clinically feeling a lot better. He thinks he might be able to go home tomorrow and feels close to his baseline. He can still complains of minimal weakness/shortness of breath. No overnight fever chills. Continuing antibiotic coverage. White count 8.9. Continue therapies as tolerated Constitutional Vitals: Vital Signs Temp Pulse Resp BP Pulse Ox 97.4 F 83 20 106/67 95 07/19/20 08:00 07/19/20 08:00 07/19/20 08:00 07/19/20 08:00 07/19/20 08:00 Period Temp Pulse Resp BP Sys/Garcia Pulse Ox Last 24 Hr 97.3 F-98.5 F 78-95 16-22 96-124/62-79 92-99 Intake and Output 07/18/20 07/19/20 07/19/20 21:59 05:59 13:59 Intake Total 480 870 550 Output Total 650 575 Balance -170 295 550 Weight 91.989 kg Alert oriented No anxiety Minimal labored breathing on clears oxygen In good spirits No lymphedema Intake & Output: Intake & Output 07/18/20 07/19/20 07/19/20 21:59 05:59 13:59 Intake Total 480 870 550 Output Total 650 575 Balance -170 295 550 Weight 91.989 kg Intake: IV 50 Rocephin 2 gm In Dextrose 5% in 50 Water 50 ml @ 100 mls/hr IV Q24H [facility] Rx#:[id number] Oral 480 870 500 Output: Void Amount 650 575 Other: Meal Dinner Breakfast Percent of Meal Consumed 100% 100% Feeding Ability Assist with Tray Set Up Assist with Tray Set Up Urine Appearance Clear Clear Urine Color Dark Yellow Bright Yellow Urine Odor Strong Stool Size Large Stool Color Brown Green Stool Consistency Formed OBJ DATA Labs CBC & Chem 7: 07/19/20 05:08 07/19/20 05:08 Labs: Abnormal Lab Results 07/19/20 07/19/20 07/19/20 05:08 05:08 05:08 RBC 3.56 L Hgb 10.9 L Hct 34.0 L RDW MPV 11.7 H Lymph % (Auto) 13.7 L [place] % (Auto) Lymph # (Auto) 1.22 L [place] # (Auto) D-Dimer 4.95 H Chloride 92 L Carbon Dioxide 31 H Glucose 122 H Uric Acid 8.7 H Direct Bilirubin GGT 152 H Alkaline Phosphatase 223 H C-Reactive Protein NT-Pro-B Natriuret Pep Urine Urobilinogen Hyaline Casts Urine Mucus 07/18/20 07/18/20 07/18/20 05:08 05:08 05:08 RBC 3.80 L Hgb 11.6 L Hct 37.1 L RDW 14.8 H MPV 11.7 H Lymph % (Auto) [place] % (Auto) 15.5 H Lymph # (Auto) [place] # (Auto) 1.03 H D-Dimer 4.80 H Chloride 93 L Carbon Dioxide 34 H Glucose Uric Acid 9.0 H Direct Bilirubin 0.3 H GGT 149 H Alkaline Phosphatase 223 H C-Reactive Protein 4.60 H NT-Pro-B Natriuret Pep Urine Urobilinogen Hyaline Casts Urine Mucus 07/17/20 07/17/20 07/17/20 14:39 13:53 13:53 RBC 3.98 L Hgb 12.2 L Hct 38.6 L RDW 14.7 H MPV 11.8 H Lymph % (Auto) [place] % (Auto) 16.7 H Lymph # (Auto) [place] # (Auto) 1.20 H D-Dimer Chloride 94 L Carbon Dioxide 36 H Glucose Uric Acid Direct Bilirubin GGT Alkaline Phosphatase 233 H C-Reactive Protein NT-Pro-B Natriuret Pep 1239.0 H Urine Urobilinogen 2.0 A Hyaline Casts 19 H Urine Mucus Few A Meds: Medications Acetaminophen (Tylenol) 650 mg PO Q4-6HP PRN; Protocol PRN Reason: Per Pain Protocol/Fever > 101 Bisacodyl (Dulcolax) 10 mg [place] Q2-3DAYS PRN PRN Reason: Constipation Budesonide (Pulmicort) 2 puff INH BID [facility] Last Admin: 07/19/20 09:04 Dose: 2 puff Documented by: Clopidogrel Bisulfate (Plavix) 75 mg PO QHS [facility] Last Admin: 07/18/20 20:31 Dose: 75 mg Documented by: Docusate Sodium (Colace) 100 mg PO BID [facility] Last Admin: 07/19/20 08:50 Dose: 100 mg Documented by: Duloxetine HCl (Cymbalta) 60 mg PO DAILY [facility] Last Admin: 07/19/20 08:49 Dose: 60 mg Documented by: Furosemide (Lasix) 80 mg PO BID@0800,1200 [facility] Last Admin: 07/19/20 08:01 Dose: 80 mg Documented by: Gabapentin (Neurontin) 300 mg PO Q8 [facility] Last Admin: 07/19/20 05:15 Dose: 300 mg Documented by: Heparin Sodium (Porcine) (Heparin) 5,000 unit SQ Q12 [facility] Last Admin: 07/19/20 08:51 Dose: 5,000 unit Documented by: Azithromycin 500 mg/ Dextrose 250 mls @ 250 mls/hr IV Q24H [facility] Stop: 07/20/20 10:59 Ceftriaxone Sodium 2 gm/ (Dextrose) 50 mls @ 100 mls/hr IV Q24H [facility]; Protocol Last Infusion: 07/19/20 09:57 Dose: Infused Documented by: Potassium Chloride 40 meq/ (Dextrose) 520 mls @ 130 mls/hr IV UD PRN PRN Reason: K+ = or < 3.5 Acetaminophen (Ofirmev) 650 mg in 65 mls @ 130 mls/hr IV Q6HP PRN; Protocol PRN Reason: Per Pain Protocol/Fever > 101 Magnesium Sulfate (Magnesium Sulfate) 2 gm in 50 mls @ 50 mls/hr IV UD PRN PRN Reason: MG = or < 1.7 Levothyroxine Sodium (Synthroid) 200 mcg PO ACB [facility] Last Admin: 07/19/20 07:00 Dose: 200 mcg Documented by: Melatonin (Melatonin 3mg Tablet) 3 mg PO HSP PRN PRN Reason: Insomnia Metoprolol Succinate (Toprol Xl) 50 mg PO QDAY [facility] Last Admin: 07/19/20 08:51 Dose: 50 mg Documented by: Ondansetron HCl (Zofran Odt) 4 mg SL Q4-6HP PRN; Protocol PRN Reason: Nausea And Vomiting Ondansetron HCl (Zofran) 4 mg IV Q4-6HP PRN; Protocol PRN Reason: Nausea And Vomiting Oxycodone/Acetaminophen (Percocet 10-325mg) 1 tab PO Q4HP PRN; Protocol PRN Reason: Back Pain Polyethylene Glycol (Miralax) 17 gm PO DAILYP PRN PRN Reason: Constipation Potassium Chloride (Kdur) 30 meq PO QAMCC [facility] Last Admin: 07/19/20 08:01 Dose: 30 meq Documented by: Prazosin HCl (Minipress) 1 mg PO QPM [facility] Last Admin: 07/18/20 20:30 Dose: 1 mg Documented by: Senna/Docusate Sodium (Senna Plus Tablet) 1 tab PO HS [facility] Last Admin: 07/18/20 20:31 Dose: 1 tab Documented by: Sodium Chloride (Saline Flush) 10 ml IV Q8 [facility] Last Admin: 07/19/20 05:15 Dose: 10 ml Documented by: Tamsulosin HCl (Flomax) 0.4 mg PO QDAY [facility] Last Admin: 07/19/20 08:51 Dose: 0.4 mg Documented by: Tiotropium [place] (Spiriva) 18 mcg INH DAILY [facility] Last Admin: 07/19/20 09:06 Dose: 1 capsule Documented by: A/P Narrative A/P Narrative: * Bilateral lower lobe pneumonia-clinical improvement noted. Continue antibiotics coverage. * Hypoxic respiratory failure -on 3 L oxygen. However much improved clinically and feels close to his baseline. * History of COPD with acute exacerbation clinically improved on steroids/bronchodilators/oxygen/pulmonary toilet * Bilateral pleural effusion-continue diuresis. Interval chest imaging no change * History of CAD/CHF continue Plavix/metoprolol. * BPH continue tamsulosin * Hypothyroid continue thyroxine * Anxiety disorder continue Cymbalta * Hypertension continue prazosin/metoprolol * Neuropathy continue gabapentin * Full code * Prophylaxis heparin Plan * Continue antibiotic coverage * Gentle diuresis * PT OT nutrition support/pulmonary toilet * Pre-existing medical condition management on home medication * Discharge planning Time Spent With Patient Time: Total time spent is greater than 50% in coordination of care (as documented) at patient's floor/unit and/or counseling patient: QUALITY VTE Deep Vein Thrombosis/Pulmonary Embolism Present on Admission: No
[2020-07-19] MEDS: AZITHROMYCIN 500 MG in DEXTROSE 5% IN WATER 250 ML IV SCH (10:32)
[2020-07-19] MEDS: CLOPIDOGREL 75 MG TABLET PO SCH (20:18)
[2020-07-19] MEDS: SENNOSIDES/DOCUSATE SODIUM 1 TAB TABLET PO SCH (20:18)
[2020-07-19] MEDS: PRAZOSIN 1 MG CAPSULE PO SCH (20:18)
[2020-07-20] MEDS: GABAPENTIN 300 MG CAPSULE PO SCH (05:47)
[2020-07-20] MEDS: 0.9 % SODIUM CHLORIDE 10 ML SYRINGE IV SCH (05:47)
[2020-07-20 06:44] LABS: Basophils # (Auto) 0.01 K/mcL (0.00-0.20); Basophils % (Auto) 0.1 % (0.0-2.0); Eosinophils # (Auto) 0 K/mcL (0.00-0.70); Eosinophils % (Auto) 0 % (0.0-7.0); Hematocrit 34.4 % (41.0-55.0); Hemoglobin 10.9 g/dL (13.5-16.5); Lymphocytes % (Auto) 13.1 % (15.0-49.0); Mean Cell Volume 95.8 fL (80.0-100.0); Mean Corpuscular HGB Conc 31.7 g/dL (31.0-36.0); Mean Platelet Volume 12.3 fL (7.4-10.4); Monocytes # (Auto) 1.11 K/mcL (0.10-0.90); Monocytes % (Auto) 10.4 % (1.0-12.0); Neutrophils % (Auto) 76.4 % (38.0-78.0); Platelet Count 140 K/mcL (140-440); RBC 3.59 M/mcL (4.50-5.90); Red Cell Distribution Width 14.6 % (11.5-14.5); WBC 10.7 K/mcL (4.5-11.0)
[2020-07-20 07:09] LABS: ALT/SGPT 5 U/L (<40); AST/SGOT 13 U/L (<40); Albumin 3.6 gm/dL (3.2-5.2); Albumin/Globulin Ratio 1.1 (1.0-2.3); Alkaline Phosphatase 209 U/L (39-117); Bilirubin,Direct 0.2 mg/dL (<0.3); Bilirubin,Total 0.4 mg/dL (0.1-1.0); Blood Urea Nitrogen 24 mg/dL (8-23); Calcium 9.4 mg/dL (8.6-10.4); Carbon Dioxide 34 mmol/L (22-30); Chloride 92 mmol/L (96-108); Globulin 3.3 gm/dL (2.2-3.7); Glomerular Filtration Rate 65; Glucose 109 mg/dL (70-105); Lactate Dehydrogenase 141 U/L (135-225); Phosphorous 3.8 mg/dL (2.5-4.5); Triglycerides 43 mg/dL (<150); Uric Acid 8.2 mg/dL (2.5-8.0)
[2020-07-20] MEDS: LEVOTHYROXINE 100 MCG TABLET PO SCH (07:31)
[2020-07-20] MEDS: FUROSEMIDE 80 MG TABLET PO SCH (07:31)
[2020-07-20] MEDS: POTASSIUM CHLORIDE 10 MEQ TABLET PO SCH (07:32)
[2020-07-20] MEDS: DULoxetine 30 MG CAPSULE PO SCH (08:36)
[2020-07-20] MEDS: METOPROLOL SUCCINATE 50 MG TAB.XL.24H PO SCH (08:36)
[2020-07-20] MEDS: HEPARIN 5,000 UNIT/ML VIAL SQ SCH (08:36)
[2020-07-20] MEDS: cefTRIAXone 2 GM in DEXTROSE 5% IN WATER 50 ML IV SCH (08:36)
[2020-07-20] MEDS: DOCUSATE SODIUM 100 MG CAPSULE PO SCH (08:37)
[2020-07-20] MEDS: TIOTROPIUM BROMIDE 18 MCG INHALANT INH SCH (08:37)
[2020-07-20] MEDS: TAMSULOSIN 0.4 MG CAPSULE PO SCH (08:37)
[2020-07-20] MEDS: BUDESONIDE 1 PUFF INHALER INH SCH (08:38)
[2020-07-20] MEDS ORDERED: FUROSEMIDE 20 MG/2 ML VIAL IV SCH (09:00)
[2020-07-20] MEDS: AZITHROMYCIN 500 MG in DEXTROSE 5% IN WATER 250 ML IV SCH (09:27)
--- NOTE | 2020-07-20 10:11 | Discharge Summary ---
Discharge Provider Provider Patient information: Note initiated : 07/20/20 at 10:07 am Service Date, if different from initiated Date: [] Patient: Luis Alberto Quinn a 75 y/o M admitted on 07/17/20 for Weakness, Confusion, SOB. Discharge diagnosis * Bilateral lower lobe pneumonia-clinical improvement noted on oral antibiotics. Continue additional 5 days oral antibiotics. * Acute exacerbation of COPD- Clinically improved on steroids/bronchodilators. Continue additional 5 days oral steroid. * hypoxic respiratory failure -clinically improved now at baseline 2 L oxygen. * History of COPD with acute exacerbation clinically improved on steroids/bronchodilators/oxygen/pulmonary toilet * Bilateral pleural effusion-continue diuresis. Interval chest imaging no change * History of CAD/CHF continue Plavix/metoprolol. * BPH stable on tamsulosin * Hypothyroid managed on home dose thyroxine * Anxiety disorder continue Cymbalta * Hypertension stable on home dose prazosin/metoprolol * Neuropathy managed on gabapentin Brief hospital course Interval history: Mr. Quinn is a 75 year old M with a history of COPD/prior history of smoking, DJD, CHF/CAD/neuropathy who presents to the ER with worsening shortness of breath along with cough and inability to function that has progressed over the last couple of days. Patient has had intermittent flares of COPD and has been experiencing hacking cough with intermittent yellow productive sputum over the last month. He denies recent sick contacts but endorses to rapid deterioration over the last 48 hours but denies associated fever, headache, chest pain, diarrhea or rash or joint pain or myalgias. Initial work-up in the ER was consistent with bilateral pneumonia/associated pleural effusion. Covid test pending. Patient was started on antibiotic coverage and subsequently hospitalist service was consulted. Patient is requiring 2 L oxygen to maintain sats. At the time of my evaluation patient is alert and oriented. He was able to answer most the questions. He is lives with his daughter Clari. Intimately smokes and drink but denies exposure to sick contacts. Endorses to history as above. 07/18-patient doing remarkably better. On 2 L oxygen. Continue antibiotic/steroid. Covid negative. Remdesivir/dexamethasone discontinued. White count 6.7. Repeat chest imaging 24 hours. CRP 4.6, transition to medical floor. Continue bronchodilators 07/19-patient currently on 3 L oxygen. Interval chest imaging persistent pneumonia/effusions however patient clinically feeling a lot better. He thinks he might be able to go home tomorrow and feels close to his baseline. He can still complains of minimal weakness/shortness of breath. No overnight fever chills. Continuing antibiotic coverage. White count 8.9. Continue therapies as tolerated -07/20-patient doing remarkably better. On 2 L oxygen. Feels at baseline. Requesting discharge. Continue additional 4 days oral antibiotics. Follow primary care physician 5 to 7 days. Continue home oxygen. Date of admission: 07/17/20 17:40 Discharge date: 07/20/20 Primary care physician: Christiano Flanagan MD Consults: 07/17/20 16:29 Consult to Physician [CONS] Stat Comment: Consulting Provider: Jero Norwood Reason For Exam: Physician to Consult Discharge Meds Discharge Medications Home Medications tamsulosin 0.4 mg capsule 0.4 mg PO QDAY #30 cap 08/10/19 [Rx Confirmed 07/17/20 Last Taken 04/18/20 07:00] clopidogrel 75 mg tablet 75 mg PO QHS #30 tab 12/27/19 [Rx Confirmed 07/17/20 Last Taken 04/05/20] duloxetine 60 mg PO DAILY 04/19/20 [History Confirmed 07/17/20 Last Taken 04/18/20] levothyroxine 200 mcg tablet 200 mcg PO QAM #30 tab 04/25/20 [Rx Confirmed 07/17/20 Last Taken Unknown] Oxygen #1 ea 05/05/20 [Rx Confirmed 07/17/20 Last Taken Unknown] metoprolol succinate 50 mg tablet,extended release 24 hr 50 mg PO QDAY #30 tab 05/08/20 [Rx Confirmed 07/17/20 Last Taken Unknown] gabapentin 300 mg capsule 300 mg PO Q8H #360 cap 06/19/20 [Rx Confirmed 07/17/20 Last Taken Unknown] furosemide 40 mg tablet See Rx Instructions .ROUTE BID #120 tab 07/14/20 [Rx Confirmed 07/17/20 Last Taken Unknown] potassium chloride 10 mEq capsule,extended release 30 meq PO QDAY #120 cap 07/14/20 [Rx Confirmed 07/17/20 Last Taken Unknown] oxycodone-acetaminophen [Percocet] 1 tab PO Q4H PRN 07/17/20 [History Confirmed 07/17/20 Last Taken Unknown] prazosin 1 mg PO QPM 07/17/20 [History Confirmed 07/17/20 Last Taken Unknown] cefdinir 300 mg PO BID #10 cap 07/20/20 [Rx Last Taken Unknown] prednisone 40 mg PO QDAY #10 tab 07/20/20 [Rx Last Taken Unknown] COURSE Hospital Course Hospital course: . Discharge diagnosis: . Time Spent with Patient Time attestation: Total time spent providing and/or coordinating discharge services: EXAM Constitutional Vitals: Temp Pulse Resp BP Pulse Ox 98.1 F 74 18 133/86 96 07/20/20 08:00 07/20/20 08:00 07/20/20 08:00 07/20/20 08:00 07/20/20 04:03 Discharge Data Data Completed and Pending Labs on day of discharge: Labs from last 24 hours 07/20/20 07/20/20 07/20/20 05:49 05:49 05:49 WBC 10.7 RBC 3.59 L Hgb 10.9 L Hct 34.4 L MCV 95.8 MCH 30.4 MCHC 31.7 RDW 14.6 H Plt Count 140 MPV 12.3 H Neut % (Auto) 76.4 Lymph % (Auto) 13.1 L [place] % (Auto) 10.4 Eos % (Auto) 0 Baso % (Auto) 0.1 Lymph # (Auto) 1.40 L [place] # (Auto) 1.11 H Eos # (Auto) 0 Baso # (Auto) 0.01 Absolute Neutrophils 8.19 H Sodium 134 Potassium 4.2 Chloride 92 L Carbon Dioxide 34 H Anion Gap 8.0 BUN 24 H Creatinine 1.1 GFR Calculation 65 Glucose 109 H Uric Acid 8.2 H Calcium 9.4 Phosphorus 3.8 Magnesium 1.9 Total Bilirubin 0.4 Direct Bilirubin 0.2 GGT 153 H AST 13 ALT 5 Alkaline Phosphatase 209 H Lactate Dehydrogenase 141 Total Protein 6.9 Albumin 3.6 Globulin 3.3 Albumin/Globulin Ratio 1.1 Triglycerides 43 Procalcitonin 0.07 Preliminary micro results at discharge 07/17/20 16:48 Blood Culture - Preliminary Blood 07/17/20 16:15 Blood Culture - Preliminary Blood Discharge Plan Patient/Caregiver Discharge Instructions Activity: increase activity as tolerated Diet: Regular Diet Activity Restrictions/Additional Instructions: 5 days oral antibiotic 5 days steroids Follow-up primary care physician 5 to 7 days continue home oxygen. Return to ER if worsening fever chills or shortness of breath Prescriptions: New cefdinir 300 MG capsule 300 mg PO BID Qty: 10 RF: 0 prednisone 20 mg tablet 40 mg PO QDAY Qty: 10 RF: 0 Continued (DME) Oxygen Qty: 1 RF: 0 furosemide 40 mg tablet See Rx Instructions .ROUTE BID Qty: 120 RF: 1 potassium chloride 10 mEq capsule, extended release 30 meq PO QDAY Qty: 120 RF: 12 tamsulosin 0.4 mg capsule 0.4 mg PO QDAY Qty: 30 RF: 12 clopidogrel 75 mg tablet 75 mg PO QHS Qty: 30 RF: 11 levothyroxine [Levoxyl] 200 mcg tablet 200 mcg PO QAM Qty: 30 RF: 3 metoprolol succinate 50 mg tablet extended release 24 hr 50 mg PO QDAY Qty: 30 RF: 3 gabapentin 300 mg capsule 300 mg PO Q8H Qty: 360 RF: 0 duloxetine 60 mg capsule,delayed release(DR/EC) 60 mg PO DAILY RF: 0 prazosin 1 mg Capsule 1 mg PO QPM RF: 0 oxycodone-acetaminophen [Percocet] 10-325 mg Tablet 1 tab PO Q4H PRN (Reason: Back Pain) RF: 0 Follow Up Plan Follow up with: Christiano Flanagan MD [Primary Care Provider] - Patient Disposition: Home, Self-Care Rehab Potential: Good I certify that the patient requires SNF services: No Overall status at discharge: patient is progressing back to baseline Discharge Orders: Discharge Order (Routine); Ordered 07/20/20 Ordered By: Jero HARTMAN VTE Deep Vein Thrombosis/Pulmonary Embolism Present on Admission: No
== END 2020-07-20 11:10 | disposition home or self-care (01) | DRG 190 ==
LOC: ED 13:26 → ICU 17:35 → MEDSUR 07-18 16:45
PROVIDERS: ADMIT Internal Medicine; ATTEND Internal Medicine